=== PATIENT | female | born 1980 | race Two or more races ===

== ENCOUNTER 2019-01-30 11:16 | Outpatient (CLI) | payer OTHER | END 2019-01-30 11:37 | disposition home or self-care (01) | LOC: EDBD 11:16 → NUCLEAR 11:16 | DX: R00.2 Palpitations (principal); R00.0 Tachycardia, unspecified ==

== ENCOUNTER 2024-01-24 08:55 | Outpatient (CLI) | payer OTHER | END 2024-01-24 09:01 | disposition home or self-care (01) | LOC: SONOGRAMA 08:55 | PROVIDERS: ATTEND Pathology Anatomic Pathology | DX: D34 Benign neoplasm of thyroid gland (principal); E07.89 Other specified disorders of thyroid; E04.2 Nontoxic multinodular goiter ==